=== PATIENT | male | born 1975 | race Two or more races ===

== ENCOUNTER 2017-07-15 23:20 | Emergency (ER) | payer BC, OTHER ==
[~2017-07-15] VITALS: Ht 170.2 cm; Wt 92.0 kg
[2017-07-15 23:24] VITALS: Ht 170.2 cm; Wt 92.0 kg
[2017-07-16] MEDS ORDERED: AMLO-218 PO (01:14)
--- NOTE | 2017-07-16 01:16 | ERD ---
ER Documentation Chief Complaint Date/Time DATE: 07/16/17 TIME: 01:15 Chief Complaint HIGH BLOOD PRESSURE AND HEADACHE, PATIENT STATES DID NOT TAKE PM DOSE HPI This a 41-year-old male with hypertension given blood pressure medications by his doctor yesterday metoprolol and losartan. The patient says he had a mild dull vertex headache earlier today he checked his blood pressure with a reading 180/120. Headache is now better. No nausea no focal neurological complaints such as numbness weakness noted shortness of breath no chest pain no visual change. This incident occurred this afternoon ROS All systems reviewed and are negative except as per history of present illness. Medications Home Meds Active Scripts Amlodipine Besylate* (Norvasc*) 10 Mg Tablet, 10 MG PO DAILY, #30 TAB Prov:MELE PORTILLO DO 07/16/17 PMhx/Soc Hx Alcohol Use: No Hx Substance Use: No Hx Tobacco Use: Yes (1 pack a day) Smoking Status: Current every day smoker FmHx Family History: No coronary disease Physical Exam Vitals Vital Signs Date Time Temp Pulse Resp B/P Pulse Ox O2 Delivery O2 Flow Rate FiO2 07/15/17 23:24 97.0 67 17 183/121 98 Physical Exam Const: Well-developed, well-nourished Head: Atraumatic, normocephalic Eyes: Normal Conjunctiva, PERRLA, EOMI, normal sclera, no nystagmus ENT: Normal External Ears, Nose and Mouth, moist mucus membranes. Neck: Full range of motion. No meningismus, no lymphadenopathy. Resp: Clear to auscultation bilaterally, no wheezing, rhonchi, rales Cardio: Regular rate and rhythm, no murmurs, S1 S2 present Abd: Soft, non tender x 4, non distended. Normal bowel sounds, no guarding or rebound, no pulsitile abdominal masses or bruits Skin: No petechiae or rashes, no ecchymosis , no maculopapular rash Back: No midline or flank tenderness Ext: No cyanosis, or edema, FROM x 4, normal inspection, neurovascularly intact x 4 Neur: Awake and alert, STR 5/5 x 4, sensation intact x 4, no focal findings, cerebellum intact Psych: Normal Mood and Affect Results 24 hrs Current Medications Medications (Trade) Dose Ordered Sig/Satish Route PRN Reason Start Time Stop Time Status Last Admin Dose Admin Nicardipine HCl (Cardene) 60 mg ONCE ONCE PO 07/16/17 01:30 07/16/17 01:31 Procedures/MDM Patient is given Cardene 60 mg p.o. Told patient to stop taking his beta-blockers and will give Norvasc 10 with losartan Departure Diagnosis: Primary Impression: Hypertension Hypertension type: essential hypertension Qualified Code: I10 - Essential hypertension Condition: Stable Patient Instructions: High Blood Pressure (Hypertension) Referrals: NO PRIMARY,CARE PHYSICIAN (PCP) MELE PORTILLO DO Jul 16, 2017 01:16
[2017-07-16 01:18] VITALS: RESP 19
[2017-07-16] MEDS ORDERED: HYDROCODONE/APAP (5/325) TAB PO ONE (01:30)
[2017-07-16] MEDS ORDERED: NICARDipine HCL 30 MG CAPSULE PO ONE (01:30)
[2017-07-16 01:37] VITALS: BP 146/91; PULSE 55
== END 2017-07-16 12:51 | disposition home or self-care (01) ==
LOC: FTE 23:20
DX: I10 Essential (primary) hypertension (principal); F17.210 Nicotine dependence, cigarettes, uncomplicated
CPT/HCPCS: Z7502; Z7610; 99283